=== PATIENT | female | born 1960 | race Caucasian/White ===

== ENCOUNTER → 2018-04-23 | Outpatient (CLI) | payer BC ==
[2014-03-08 11:00] VITALS: BP 150/92
[~2018-04-23] MED LIST: AMARYL2 MG PO; ATACAND32 MG PO; GLUCOPHAGE XR500 MG PO; GLUCOPHAGE500 MG PO; HYDROCHLOROTH12.5 MG PO
== END ==
LOC: LAB 16:14
DX: E11.9 Type 2 diabetes mellitus without complications (principal)

== ENCOUNTER → 2018-10-16 | Outpatient (CLI) | payer BC ==
[2014-03-08 11:00] VITALS: BP 150/92
== END ==
LOC: LAB 16:52
DX: E11.9 Type 2 diabetes mellitus without complications (principal)

== ENCOUNTER → 2019-08-13 | Outpatient (CLI) | payer BC ==
[2014-03-08 11:00] VITALS: BP 150/92
[2019-08-13 16:12] LABS: BASO # 0.1 (0.02-0.10); EOS # 0.1 (0.04-0.40); EOS % 1.6 % (1.0-5.0); HEMATOCRIT 39.4 % (37.0-47.0); HEMOGLOBIN 12.7 g/dL (12.5-16.0); LYMPH# 2.4 (1.50-4.00); MEAN CELL VOLUME 84 fl (78-100); MEAN CORPUSCULAR HEMOGLOBIN 27 pg (27-31); MEAN CORPUSCULAR HGB CONC 32 g/dL (33-37); MEAN PLATELET VOLUME 10.3 fl (7.4-10.4); MONO # 0.5 (0.20-0.80); NEU # 4.9 (1.40-6.50); PLATELET COUNT 228 K/mm3 (130-400); RED CELL DISTRIBUTION WIDTH 13.7 % (11.5-14.5); WHITE BLOOD COUNT 8.1 K/mm3 (4.8-10.8)
[2019-08-13 16:27] LABS: ALBUMIN 4.2 g/dL (3.5-5.0); POTASSIUM 3.4 mmol/L (3.5-5.1)
[2019-08-13 16:28] LABS: CALCIUM 9.9 mg/dL (8.3-10.5)
[2019-08-13 16:29] LABS: TOTAL PROTEIN 7.5 g/dL (6.4-8.3)
[2019-08-13 16:31] LABS: TOTAL BILIRUBIN 0.6 mg/dL (0.2-1.2)
== END ==
LOC: LAB 15:59
PROVIDERS: Family Medicine
DX: Z00.00 Encounter for general adult medical examination without abnormal findings (principal); E11.9 Type 2 diabetes mellitus without complications; I10 Essential (primary) hypertension

== ENCOUNTER → 2019-08-14 | Outpatient (CLI) | payer BC ==
[2014-03-08 11:00] VITALS: BP 150/92
== END ==
LOC: LAB 16:00
DX: Z00.00 Encounter for general adult medical examination without abnormal findings (principal); E11.9 Type 2 diabetes mellitus without complications; I10 Essential (primary) hypertension

== ENCOUNTER → 2021-02-07 | Outpatient (CLI) | payer BC ==
[2014-03-08 11:00] VITALS: BP 150/92
== END ==
LOC: LAB 16:20
DX: N39.0 Urinary tract infection, site not specified (principal)

== ENCOUNTER → 2021-07-28 | Outpatient (CLI) | payer BC ==
[2021-07-28 17:00] LABS: BASO # 0.04 K/mm3 (0.02-0.10); EOS % 2.7 % (1.0-5.0); HEMATOCRIT 38.9 % (37.0-47.0); HEMOGLOBIN 12.8 g/dL (12.5-16.0); LYMPH# 2.07 K/mm3 (1.50-4.00); MEAN CELL VOLUME 85 fl (78-100); MEAN CORPUSCULAR HEMOGLOBIN 28 pg (27-31); MEAN CORPUSCULAR HGB CONC 33 g/dL (33-37); MEAN PLATELET VOLUME 10.4 fl (7.4-10.4); MONO # 0.45 K/mm3 (0.20-0.80); NEU # 4.67 K/mm3 (1.40-6.50); PLATELET COUNT 225 K/mm3 (130-400); RED CELL DISTRIBUTION WIDTH 12.9 % (11.5-14.5); WHITE BLOOD COUNT 7.4 K/mm3 (4.8-10.8)
[2021-07-28 17:07] LABS: ALBUMIN 4.2 g/dL (3.4-4.8); POTASSIUM 3.7 mmol/L (3.5-5.1)
[2021-07-28 17:08] LABS: CALCIUM 10.1 mg/dL (8.3-10.5)
[2021-07-28 17:09] LABS: TOTAL PROTEIN 7.3 g/dL (6.2-8.1)
[2021-07-28 17:11] LABS: TOTAL BILIRUBIN 0.7 mg/dL (0.2-1.2)
[2021-07-28 17:27] LABS: PH-URINE 5.5 (5.0 - 8.0); URINE APPEARANCE HAZY; URINE BILIRUBIN NEGATIVE (NEGATIVE); URINE BLOOD NEGATIVE (NEGATIVE); URINE COLOR LIGHT YELLOW; URINE GLUCOSE NEGATIVE (NEGATIVE); URINE KETONE NEGATIVE (NEGATIVE); URINE LEUKOCYTE ESTERASE NEGATIVE (NEGATIVE); URINE NITRATE NEGATIVE (NEGATIVE); URINE PROTEIN(semi-quant) TRACE mg/dL (NEGATIVE); URINE UROBILINOGEN NORMAL (NORMAL); URINE WBC 0-1 /hpf (0-3)
== END ==
LOC: LAB 16:44
PROVIDERS: Family Medicine
DX: Z00.00 Encounter for general adult medical examination without abnormal findings (principal); E11.9 Type 2 diabetes mellitus without complications; E78.5 Hyperlipidemia, unspecified; N39.0 Urinary tract infection, site not specified

== ENCOUNTER → 2022-04-14 | Outpatient (CLI) | payer OTHER | LOC: LAB 15:46 | DX: E11.9 Type 2 diabetes mellitus without complications (principal) ==

== ENCOUNTER → 2022-11-16 | Outpatient (CLI) | payer OTHER | LOC: RAD 17:23 | DX: M51.16 Intervertebral disc disorders with radiculopathy, lumbar region (principal); M48.061 Spinal stenosis, lumbar region without neurogenic claudication; Q05.7 Lumbar spina bifida without hydrocephalus ==

== ENCOUNTER → 2023-06-23 | Outpatient (CLI) | payer OTHER ==
[2023-06-23 12:12] LABS: BASO # 0.04 K/mm3 (0.02-0.10); EOS # 0.64 K/mm3 (0.04-0.40); EOS % 10.2 % (1.0-5.0); HEMATOCRIT 36.4 % (37.0-47.0); HEMOGLOBIN 11.9 g/dL (12.5-16.0); LYMPH# 2.33 K/mm3 (1.50-4.00); MEAN CELL VOLUME 86 fl (78-100); MEAN CORPUSCULAR HEMOGLOBIN 28 pg (27-31); MEAN CORPUSCULAR HGB CONC 33 g/dL (33-37); MEAN PLATELET VOLUME 10.1 fl (7.4-10.4); MONO # 0.39 K/mm3 (0.20-0.80); NEU # 2.87 K/mm3 (1.40-6.50); PLATELET COUNT 216 K/mm3 (130-400); RED BLOOD COUNT 4.23 M/mm3 (4.10-5.30); RED CELL DISTRIBUTION WIDTH 12.6 % (11.5-14.5); WHITE BLOOD COUNT 6.3 K/mm3 (4.8-10.8)
[2023-06-23 12:17] LABS: ALBUMIN 3.9 g/dL (3.4-4.8); POTASSIUM 3.7 mmol/L (3.5-5.1)
[2023-06-23 12:18] LABS: CALCIUM 9.3 mg/dL (8.3-10.5)
[2023-06-23 12:20] LABS: TOTAL PROTEIN 6.7 g/dL (6.2-8.1)
[2023-06-23 12:21] LABS: TOTAL BILIRUBIN 0.6 mg/dL (0.2-1.2)
== END ==
LOC: LAB 11:50
PROVIDERS: Family Medicine
DX: Z00.00 Encounter for general adult medical examination without abnormal findings (principal); E78.5 Hyperlipidemia, unspecified; E11.9 Type 2 diabetes mellitus without complications

== ENCOUNTER → 2023-07-23 | Outpatient (CLI) | payer OTHER | LOC: LAB 15:17 | DX: N39.0 Urinary tract infection, site not specified (principal) ==